=== PATIENT | male | born 1945 | race Caucasian/White ===

== ENCOUNTER 2017-08-30 17:29 | Emergency (ER) | payer MEDICARE, OTHER ==
[~2017-08-30] VITALS: Ht 177.8 cm; Wt 87.0 kg
[2017-08-30 17:34] VITALS: BP 137/74
[2017-08-30 18:11] LABS: BASOPHILS # (AUTO) 0.02 x10^3/uL (0-0.1); BASOPHILS % (AUTO) 1 % (0-1); EOSINOPHILS # (AUTO) 0.12 x10^3/uL (0-0.4); EOSINOPHILS % (AUTO) 3 % (1-7); LYMPHOCYTES # (AUTO) 0.76 x10^3/uL (1-3.4); LYMPHOCYTES % (AUTO) 21 % (22-44); MD NO; MEAN CORPUSCULAR HEMOGLOBIN 30.7 pg (27.5-34.5); MEAN CORPUSCULAR HGB CONC 34.1 g/dL (33.2-36.2); MEAN CORPUSCULAR VOLUME 90.1 fL (81-97); MEAN PLATELET VOLUME 7.9 fL (7.4-10.4); MONOCYTES % (AUTO) 6 % (2-9); NEUTROPHILS # (AUTO) 2.53 x10^3/uL (1.8-6.8); NEUTROPHILS % (AUTO) 70 % (42-75); PLATELET COUNT 170 x10^3/uL (130-400); RED BLOOD COUNT 4.23 x10^6/uL (4.38-5.82); RED CELL DISTRIBUTION WIDTH 13.4 % (9.4-14.8)
[2017-08-30 18:21] LABS: ANION GAP 4 mmol/L (5-15); CALCIUM 8.4 mg/dL (8.5-10.1); CHLORIDE 107 mmol/L (98-107); CREATININE 0.83 mg/dL (0.7-1.3)
[2017-08-30] MEDS ORDERED: FUROSEMIDE 20 MG TABLET ONE (18:33)
[2017-08-31] MEDS ORDERED: FUROSEMIDE 20 MG TABLET PO ONE (09:00)
== END 2017-08-30 19:25 | disposition home or self-care (01) ==
LOC: ED 19:19
DX: R60.0 Localized edema (principal); M79.605 Pain in left leg; M79.604 Pain in right leg; R06.00 Dyspnea, unspecified
CPT/HCPCS: 36415; 71045; 80048; 83880; 85025; 99285

== ENCOUNTER 2017-10-03 18:57 | Inpatient (IN) | payer OTHER ==
[~2017-10-03] VITALS: Ht 177.8 cm; Wt 81.8 kg
[2017-10-03] MEDS ORDERED: ASPIRIN 81 MG TABLET CHEW ONE (19:11)
[2017-10-03] MEDS ORDERED: ASPIRIN 81 MG TABLET CHEW PO ONE (19:30)
[2017-10-03 19:32] LABS: BASOPHILS # (AUTO) 0.03 x10^3/uL (0-0.1); BASOPHILS % (AUTO) 1 % (0-1); EOSINOPHILS # (AUTO) 0.14 x10^3/uL (0-0.4); EOSINOPHILS % (AUTO) 3 % (1-7); LYMPHOCYTES # (AUTO) 1.01 x10^3/uL (1-3.4); LYMPHOCYTES % (AUTO) 23 % (22-44); MD NO; MEAN CORPUSCULAR HEMOGLOBIN 31.3 pg (27.5-34.5); MEAN CORPUSCULAR HGB CONC 34.4 g/dL (33.2-36.2); MEAN CORPUSCULAR VOLUME 90.9 fL (81-97); MEAN PLATELET VOLUME 7.9 fL (7.4-10.4); MONOCYTES # (AUTO) 0.27 x10^3/uL (0.2-0.8); MONOCYTES % (AUTO) 6 % (2-9); NEUTROPHILS # (AUTO) 2.98 x10^3/uL (1.8-6.8); NEUTROPHILS % (AUTO) 67 % (42-75); PLATELET COUNT 178 x10^3/uL (130-400); RED CELL DISTRIBUTION WIDTH 13.1 % (9.4-14.8)
[2017-10-03 19:42] LABS: ALBUMIN 4.4 g/dL (3.4-5.0); ANION GAP 11 mmol/L (5-15); CALCIUM 8.8 mg/dL (8.5-10.1); CHLORIDE 103 mmol/L (98-107); CREATININE 0.79 mg/dL (0.7-1.3)
[2017-10-03 19:46] LABS: TROPONIN I < 0.015 ng/mL (0.000-0.045)
[2017-10-03] MEDS ORDERED: MORPHINE SULFATE 4 MG/ML, 1ML IVPush PRN (21:00)
[2017-10-03] MEDS ORDERED: ONDANSETRON 2MG/ML, 2ML IVPush PRN ×2 (21:00→21:30)
[2017-10-03] MEDS ORDERED: KETOROLAC 30 MG/1 ML IV PRN (21:30)
[2017-10-03] MEDS ORDERED: ONDANSETRON ODT 4 MG PO PRN (21:30)
[2017-10-03] MEDS: ENOXAPARIN 40 MG/0.4 ML SQ SCH (21:30)
[2017-10-03] MEDS ORDERED: ENOXAPARIN 40 MG/0.4 ML ONE (22:01)
[2017-10-03 22:53] VITALS: BP 158/89
[2017-10-04] MEDS: ATORVASTATIN 40 MG TABLET PO SCH ×2 (00:56→20:10)
[2017-10-04 02:03] VITALS: BP 112/68
[2017-10-04 03:00] LABS: AMPHETAMINE SCREEN, URINE Negative (Negative); BARBITURATE SCREEN, URINE Negative (Negative); BENZODIAZEPINE SCREEN, URINE Negative (Negative); CANNABINOID SCREEN, URINE Negative (Negative); COCAINE SCREEN, URINE Negative (Negative); METHADONE SCREEN, URINE Negative (Negative); OPIATE SCREEN, URINE Negative (Negative)
[2017-10-04] MEDS ORDERED: ASPIRIN 81 MG TABLET EC PO SCH (06:00)
[2017-10-04 07:04] LABS: ANION GAP 4 mmol/L (5-15); CALCIUM 8.6 mg/dL (8.5-10.1); CHLORIDE 108 mmol/L (98-107); CHOLESTEROL, TOTAL 173 mg/dL (140-239); CREATININE 0.72 mg/dL (0.7-1.3)
[2017-10-04 07:06] LABS: CHOL/HDL RATIO 5.8; HDL CHOL % 17 % (26-37); HDL CHOLESTEROL (DIRECT) 30 mg/dL (40-60); LDL CHOLESTEROL,CALCULATED 79 mg/dL (54-169); LDL/HDL RATIO 2.6 (0.5-3.0); TRIGLYCERIDES 318 mg/dL (50-200); VLDL CHOLESTEROL 64 mg/dL (0-25)
[2017-10-04 07:11] LABS: BASOPHILS # (AUTO) 0.02 x10^3/uL (0-0.1); BASOPHILS % (AUTO) 1 % (0-1); EOSINOPHILS # (AUTO) 0.13 x10^3/uL (0-0.4); EOSINOPHILS % (AUTO) 4 % (1-7); LYMPHOCYTES # (AUTO) 0.88 x10^3/uL (1-3.4); LYMPHOCYTES % (AUTO) 26 % (22-44); MD NO; MEAN CORPUSCULAR HEMOGLOBIN 30.7 pg (27.5-34.5); MEAN CORPUSCULAR HGB CONC 34.3 g/dL (33.2-36.2); MEAN CORPUSCULAR VOLUME 89.6 fL (81-97); MEAN PLATELET VOLUME 7.9 fL (7.4-10.4); MONOCYTES # (AUTO) 0.21 x10^3/uL (0.2-0.8); MONOCYTES % (AUTO) 6 % (2-9); NEUTROPHILS # (AUTO) 2.14 x10^3/uL (1.8-6.8); NEUTROPHILS % (AUTO) 63 % (42-75); PLATELET COUNT 144 x10^3/uL (130-400); RED BLOOD COUNT 4.31 x10^6/uL (4.38-5.82); RED CELL DISTRIBUTION WIDTH 13.1 % (9.4-14.8)
[2017-10-04 07:45] VITALS: BP 149/75
[2017-10-04] MEDS ORDERED: metFORMIN 500 MG TABLET PO SCH (08:00)
[2017-10-04 08:04] LABS: TROPONIN I 0.024 ng/mL (0.000-0.045)
[2017-10-04] MEDS: GABAPENTIN 300 MG CAPSULE PO SCH ×2 (09:08→20:10)
[2017-10-04] MEDS ORDERED: REGADENOSON 0.4 MG/5 ML SYRINGE ONE (11:26)
[2017-10-04 13:56] VITALS: BP 136/72
[2017-10-04 14:20] LABS: MICROSCOPIC AUTO
[2017-10-04 14:24] LABS: CULTURE INDICATED? YES
[2017-10-04] MEDS: LIDODERM 5% PATCH TD SCH (14:28)
[2017-10-04 15:12] LABS: TROPONIN I < 0.015 ng/mL (0.000-0.045)
[2017-10-04] MEDS: INSULIN LISPRO 100 UNITS/ML, PEN SQ-INSULIN SCH ×2 (15:41→20:35)
[2017-10-04 18:25] VITALS: BP 164/91
[2017-10-04] MEDS: METOPROLOL TARTRATE 25 MG TABLET PO SCH (18:25)
[2017-10-04 19:05] VITALS: BP 145/76
[2017-10-04] MEDS ORDERED: ACETAMINOPHEN 325 MG TABLET ONE (20:05)
[2017-10-04] MEDS: ACETAMINOPHEN 325 MG TABLET PO PRN (20:10)
[2017-10-04] MEDS: ENOXAPARIN 40 MG/0.4 ML SQ SCH (20:11)
[2017-10-05 01:00] VITALS: BP 130/79
[2017-10-05] MEDS: METOPROLOL TARTRATE 25 MG TABLET PO SCH ×2 (06:00→18:27)
[2017-10-05 06:01] LABS: ANION GAP 6 mmol/L (5-15); CALCIUM 8.7 mg/dL (8.5-10.1); CHLORIDE 107 mmol/L (98-107)
[2017-10-05 06:13] LABS: FREE T4 (FREE THYROXINE) 0.79 ng/dL (0.76-1.46)
[2017-10-05 06:16] VITALS: BP 111/66
[2017-10-05] MEDS: ASPIRIN 325 MG TABLET PO SCH (06:17)
[2017-10-05] MEDS: INSULIN LISPRO 100 UNITS/ML, PEN SQ-INSULIN SCH ×4 (07:00→21:25)
[2017-10-05 07:43] VITALS: BP 113/49
[2017-10-05] MEDS: GABAPENTIN 300 MG CAPSULE PO SCH ×2 (08:43→21:25)
[2017-10-05 09:56] LABS: BASOPHILS # (AUTO) 0.01 x10^3/uL (0-0.1); BASOPHILS % (AUTO) 0 % (0-1); EOSINOPHILS # (AUTO) 0.15 x10^3/uL (0-0.4); EOSINOPHILS % (AUTO) 4 % (1-7); LYMPHOCYTES % (AUTO) 28 % (22-44); MD NO; MEAN CORPUSCULAR HEMOGLOBIN 31.6 pg (27.5-34.5); MEAN CORPUSCULAR HGB CONC 35.1 g/dL (33.2-36.2); MEAN PLATELET VOLUME 8.6 fL (7.4-10.4); MONOCYTES % (AUTO) 6 % (2-9); NEUTROPHILS # (AUTO) 2.23 x10^3/uL (1.8-6.8); NEUTROPHILS % (AUTO) 62 % (42-75); PLATELET COUNT 142 x10^3/uL (130-400); RED BLOOD COUNT 4.25 x10^6/uL (4.38-5.82); RED CELL DISTRIBUTION WIDTH 13.1 % (9.4-14.8)
[2017-10-05 15:50] VITALS: BP 146/75
[2017-10-05] MEDS: LIDODERM 5% PATCH TD SCH (16:49)
[2017-10-05] MEDS: ACETAMINOPHEN 325 MG TABLET PO PRN (18:31)
[2017-10-05 19:28] VITALS: BP 158/80
[2017-10-05] MEDS: ATORVASTATIN 40 MG TABLET PO SCH (21:25)
[2017-10-05] MEDS: ENOXAPARIN 40 MG/0.4 ML SQ SCH (21:26)
[2017-10-06 02:10] VITALS: BP 111/52
[2017-10-06] MEDS: ASPIRIN 325 MG TABLET PO SCH (05:37)
[2017-10-06] MEDS: METOPROLOL TARTRATE 25 MG TABLET PO SCH (05:37)
[2017-10-06 07:06] VITALS: BP 114/61
[2017-10-06] MEDS: INSULIN LISPRO 100 UNITS/ML, PEN SQ-INSULIN SCH ×2 (08:57→11:00)
[2017-10-06] MEDS: GABAPENTIN 300 MG CAPSULE PO SCH (08:57)
[2017-10-06] MEDS: ACETAMINOPHEN 325 MG TABLET PO PRN (11:54)
[2017-10-06] MEDS ORDERED: METO25TA35 PO (13:04)
[2017-10-06] MEDS ORDERED: ASPI325T17 PO (13:04)
[2017-10-06] MEDS ORDERED: ATOR40TA78 PO (13:04)
[2017-10-06] MEDS ORDERED: METF500T PO (13:05)
== END 2017-10-06 14:48 | disposition home or self-care (01) | DRG 303 ==
LOC: ED 20:51 → EDIP 20:54 → 5SO 23:29 → DCLOUNGE 10-06 14:34
PROVIDERS: ADMIT Hospitalist; ATTEND Hospitalist
DX: I25.110 Atherosclerotic heart disease of native coronary artery with unstable angina pectoris (principal); E78.5 Hyperlipidemia, unspecified; E11.65 Type 2 diabetes mellitus with hyperglycemia; D64.9 Anemia, unspecified; F41.9 Anxiety disorder, unspecified; M54.9 Dorsalgia, unspecified; M25.571 Pain in right ankle and joints of right foot; G89.29 Other chronic pain; I11.9 Hypertensive heart disease without heart failure; Z82.5 Family history of asthma and other chronic lower respiratory diseases; Z87.891 Personal history of nicotine dependence; I25.2 Old myocardial infarction; Z95.1 Presence of aortocoronary bypass graft
CPT/HCPCS: 36415; 71046; 78452; 80048; 80061; 80307; 81001; 82040; 82962; 83735; 83880; 84100; 84439; 84443; 84484; 85025; 87086; 93005; 93017; 93306; 93922; 99285; J1650; J1885; J2785; A9502; C9898; J1815